=== PATIENT | male | born 1955 | race Caucasian/White ===

== ENCOUNTER 2016-05-29 12:27 | Emergency (ER) | payer OTHER ==
[~2016-05-29] VITALS: Ht 170.2 cm; Wt 70.0 kg
[~2016-05-29 12:27] MED LIST: DIFL500T PO; TRAM50 PO; Z.0.NO CURRENT MEDS
[2016-05-29 12:29] VITALS: BP 138/80; PULSE 124; RESP 20; TEMP 97.6; O2SAT 98
[2016-05-29 12:40] VITALS: O2SAT 97
[2016-05-29] MEDS ORDERED: FINA5TAB2 PO (12:43)
[2016-05-29] MEDS ORDERED: OMEGCAP PO (12:43)
[2016-05-29] MEDS ORDERED: TAMS0.4C4 PO (12:43)
[2016-05-29 12:44] VITALS: BP 146/80; PULSE 110; RESP 16; O2SAT 98
[2016-05-29] MEDS ORDERED: SODIUM CHLOR 0.9% 1000 ML INJ 1,000 ML IV ONE ×2 (13:00)
[2016-05-29 13:11] LABS: AUTOMATED NEUTROPHIL # 9.6 TH/MM3 (1.8-7.7); BASOPHIL % 0.3 % (0.0-2.0); EOSINOPHIL % 0.1 % (0.0-4.0); HEMATOCRIT 45.6 % (39.0-51.0); HEMO FLAGS DIFF FINAL; LYMPH % 16.3 % (9.0-44.0); MEAN CELL VOLUME 84.9 FL (80.0-100.0); MEAN CORPUSCULAR HEMOGLOBIN 29.4 PG (27.0-34.0); MEAN CORPUSCULAR HGB CONC 34.6 % (32.0-36.0); MONO % 5.1 % (0.0-8.0); NEUT % 78.2 % (16.0-70.0); PLATELET COUNT 210 TH/MM3 (150-450); RED BLOOD COUNT 5.37 MIL/MM3 (4.50-5.90); RED CELL DISTRIBUTION WIDTH 13.3 % (11.6-17.2); WHITE BLOOD COUNT 12.3 TH/MM3 (4.0-11.0)
[2016-05-29 13:25] LABS: APTT (PATIENT) 24.7 SEC (24.3-30.1); PROTHROMBIN TIME - PATIENT 11.6 SEC (9.8-11.6)
[2016-05-29 13:35] VITALS: BP 142/71; PULSE 99; RESP 16; O2SAT 96
[2016-05-29 13:35] LABS: ANION GAP 10 MEQ/L (5-15); AST (GOT) 16 U/L (15-37); BICARBONATE 25.9 MEQ/L (21.0-32.0); BLOOD UREA NITROGEN 20 MG/DL (7-18); CHLORIDE 105 MEQ/L (98-107); GLOMERULAR FILTRATION RATE 53 ML/MIN (>89); MAGNESIUM 2.2 MG/DL (1.5-2.5); SODIUM (NA) 141 MEQ/L (136-145)
--- NOTE | 2016-05-29 13:37 | RADRPT ---
EXAM DATE/TIME: 05/29/2016 12:55 [facility] COMPARISON: No previous studies available for comparison. INDICATIONS : Fever with shortness of breath. MEDICAL HISTORY : Carcinoma, prostatic. SURGICAL HISTORY : Appendectomy. Cholecystectomy. ENCOUNTER: Initial ACUITY: 1 day PAIN SCORE: 6/10 LOCATION: Bilateral chest FINDINGS: A single view of the chest demonstrates the lungs to be symmetrically aerated without evidence of mas s, infiltrate or effusion. The cardiomediastinal contours are unremarkable. Osseous structures are intact. CONCLUSION: No acute disease. Pierre Kim Jr., MD on May 29, 2016 at 13:35 Board Certified Radiologist. This report was verified electronically.
[2016-05-29 13:43] LABS: ALKALINE PHOSPHATASE 90 U/L (45-117); ALT (GPT) 26 U/L (12-78); CREATINE KINASE 104 U/L (39-308); TOTAL BILIRUBIN ADULT 0.4 MG/DL (0.2-1.0)
[2016-05-29 13:56] LABS: CKMB 0.8 NG/ML (0.5-3.6)
[2016-05-29 14:11] LABS: BLOOD, URINE TRACE (NEG); COMMENT (UR) CATH-CULT NOT IND; CULTURE IF INDICATED CATH CULTURE NOT IND; GLUCOSE,URINE NEG (NEG); KETONE, URINE 10 mg/dL (NEG); NITRITE,URINE NEG (NEG); PH, URINE 6.5 (5.0-8.5); URINE COLOR LIGHT-YELLOW (YELLW/STRAW)
--- NOTE | 2016-05-29 14:54 | PD ---
HPI Chief Complaint: Medical Clearance Time Seen by Provider: 12:48 Travel History International Travel<30 days: No Contact w/Intl Traveler<30days: No Traveled to known affect area: No History of Present Illness HPI Is a 60-year-old male presents with generalized symptoms of not feeling well, fevers yesterday. Patient is tachycardic tachypneic on arrival. States his been having some cough congestion symptoms as well as some right lower quadrant abdominal pain. Denies any testicle pain or penile pain. Patient states he went to an urgent care center and they sent him over here to be evaluated. Patient states the pain is cramping and intermittent. Waxing and waning. Denies any diarrhea or vomiting does endorse some mild nausea. PFSH Past Medical History Diminished Hearing: No Genitourinary: Yes (HX PROSTATE CALCIFICATIONS) Past Surgical History Appendectomy: Yes (73) Tonsillectomy: Yes Social History Alcohol Use: No Tobacco Use: No Substance Use: No Allergies-Medications (Allergen,Severity, Reaction): Coded Allergies: Codeine (Verified Allergy, Mild, 07/07/06) Reported Meds & Prescriptions Reported Meds & Active Scripts Active Reported Tamsulosin (Tamsulosin HCl) 0.4 Mg Cap 0.4 Mg PO HS [place]-3 Fish Oil/Vitamin (Fish Oil-Cholecalciferol) 1,000-1,000 Mg Cap 1 Cap PO DAILY Finasteride 5 Mg Tab 5 Mg PO QID Do not crush. Review of Systems Except as stated in HPI: all other systems reviewed are Neg Physical Exam Narrative GENERAL: Well-developed well-nourished, rigorous, appears older than stated age. SKIN: Warm and dry. HEAD: Atraumatic. Normocephalic. EYES: Pupils equal and round. No scleral icterus. No injection or drainage. ENT: No nasal bleeding or discharge. Mucous membranes pink and moist. NECK: Trachea midline. No JVD. CARDIOVASCULAR: Regular rate and rhythm. No murmur appreciated. RESPIRATORY: No accessory muscle use. Clear to auscultation. Breath sounds equal bilaterally. GASTROINTESTINAL: Abdomen soft, non-tender, nondistended. Hepatic and splenic margins not palpable. No tenderness at McBurney's point. MUSCULOSKELETAL: No obvious deformities. No clubbing. No cyanosis. No edema. NEUROLOGICAL: Awake and alert. No obvious cranial nerve deficits. Motor grossly within normal limits. Normal speech. PSYCHIATRIC: Appropriate mood and affect; insight and judgment normal. Data Data Last Documented VS Vital Signs Date Time Temp Pulse Resp B/P Pulse Ox O2 Delivery O2 Flow Rate FiO2 05/29/16 16:12 91 16 132/84 97 05/29/16 13:35 Room Air 05/29/16 12:29 97.6 Orders Electrocardiogram (05/29/16 12:43) Complete Blood Count With Diff (05/29/16 12:43) Comprehensive Metabolic Panel (05/29/16 12:43) Prothrombin Time / Inr (Pt) (05/29/16 12:43) Act Partial Throm Time (Ptt) (05/29/16 12:43) Lactic Acid Sepsis Protocol (05/29/16 12:43) Magnesium (Mg) (05/29/16 12:43) Phosphorus (Po4) (05/29/16 12:43) Lipase (05/29/16 12:43) Ckmb (Isoenzyme) Profile (05/29/16 12:43) Troponin I (05/29/16 12:43) Urinalysis - C+S If Indicated (05/29/16 12:43) Blood Culture (05/29/16 12:43) Chest, Single Ap (05/29/16 12:43) Blood Glucose (05/29/16 12:43) Ecg Monitoring (05/29/16 12:43) Iv Access Insert/Monitor (05/29/16 12:43) Oximetry (05/29/16 12:43) Oxygen Administration (05/29/16 12:43) Sodium Chlor 0.9% 1000 Ml Inj (Ns 1000 M (05/29/16 13:00) Sodium Chlor 0.9% 1000 Ml Inj (Ns 1000 M (05/29/16 13:00) CKMB (05/29/16 12:50) CKMB% (05/29/16 12:50) Ct Abd/Pel W Iv Contrast(Rout) (05/29/16 ) Cath For Specimen (05/29/16 14:02) Iohexol 350 Inj (Omnipaque 350 Inj) (05/29/16 14:56) Acetamin-Hydrocod 325-5 Mg ([place] 5-325 (05/29/16 15:45) Labs Laboratory Tests Test 05/29/16 05/29/16 05/29/16 12:50 12:55 13:58 White Blood Count 12.3 TH/MM3 Red Blood Count 5.37 MIL/MM3 Hemoglobin 15.8 GM/DL Hematocrit 45.6 % Mean Corpuscular Volume 84.9 FL Mean Corpuscular Hemoglobin 29.4 PG Mean Corpuscular Hemoglobin 34.6 % Concent Red Cell Distribution Width 13.3 % Platelet Count 210 TH/MM3 Mean Platelet Volume 8.1 FL Neutrophils (%) (Auto) 78.2 % Lymphocytes (%) (Auto) 16.3 % Monocytes (%) (Auto) 5.1 % Eosinophils (%) (Auto) 0.1 % Basophils (%) (Auto) 0.3 % Neutrophils # (Auto) 9.6 TH/MM3 Lymphocytes # (Auto) 2.0 TH/MM3 Monocytes # (Auto) 0.6 TH/MM3 Eosinophils # (Auto) 0.0 TH/MM3 Basophils # (Auto) 0.0 TH/MM3 CBC Comment DIFF FINAL Differential Comment Prothrombin Time 11.6 SEC Prothromb Time International 1.0 RATIO Ratio Activated Partial 24.7 SEC Thromboplast Time Sodium Level 141 MEQ/L Potassium Level 4.0 MEQ/L Chloride Level 105 MEQ/L Carbon Dioxide Level 25.9 MEQ/L Anion Gap 10 MEQ/L Blood Urea Nitrogen 20 MG/DL Creatinine 1.37 MG/DL Estimat Glomerular Filtration 53 ML/MIN Rate Random Glucose 121 MG/DL Calcium Level 9.6 MG/DL Phosphorus Level 2.0 MG/DL Magnesium Level 2.2 MG/DL Total Bilirubin 0.4 MG/DL Aspartate Amino Transf 16 U/L (AST/SGOT) Alanine Aminotransferase 26 U/L (ALT/SGPT) Alkaline Phosphatase 90 U/L Total Creatine Kinase 104 U/L Creatine Kinase MB 0.8 NG/ML Troponin I LESS THAN 0.02 NG/ML Total Protein 7.3 GM/DL Albumin 4.1 GM/DL Lipase 163 U/L Lactic Acid Level 1.9 mmol/L Urine Color LIGHT-YELLOW Urine Turbidity CLEAR Urine pH 6.5 Urine Specific [place] 1.010 Urine Protein NEG mg/dL Urine Glucose (UA) NEG mg/dL Urine Ketones 10 mg/dL Urine Occult Blood TRACE Urine Nitrite NEG Urine Bilirubin NEG Urine Urobilinogen LESS THAN 2.0 MG/DL Urine Leukocyte Esterase NEG Urine RBC 1 /hpf Microscopic Urinalysis Comment CATH-CULT NOT IND MDM Medical Decision Making Medical Screen Exam Complete: Yes Emergency Medical Condition: Yes Interpretation(s) EKG shows sinus tachycardia normal axis and normal R-wave progression. No concerning ST changes. Intervals other than rate are within normal limits. This a normal EKG except for rate. Differential Diagnosis Appendicitis, gastritis, gastric enteritis, chronic pain, sepsis unlikely. Narrative Course Patient roomed in emergency Department, white blood cell count minimally elevated at 12.3, given his history of pain in the abdomen will pursue CAT scan which shows no evidence for appendicitis. Chemistry shows minimal elevation in creatinine to 1.37 a lactic acid 1.9 which is negative. Last 24 hours Impressions Chest X-Ray 05/29/16 1243 Signed Impressions: Service Date/Time: Sunday, May 29, 2016 12:55 - CONCLUSION: No acute disease. Pierre Kim Jr., MD Abdomen/Pelvis CT 05/29/16 0000 Signed Impressions: Service Date/Time: Sunday, May 29, 2016 14:54 - CONCLUSION: 1. Tiny 1 mm stone in the left kidney. 2. There are no stones identified on the right. I do not see any perinephric stranding to suggest an obstruction. Kyrie Manuel MD FACR On further history the patient states she's been having groin pain on and off for years. His Rigors have ceased since being in the emergency department. He was giving hydrocodone total of 10/650 in the emergency department, 2 L normal saline bolus. On reassess he appears well in no apparent distress. His exam is benign. Discussed with him his chronic nature of the pain suggests he is stable for discharge need follow-up with primary care physician. Definitive cause of his pain has not been identified. His groin is reexamined and he isolates the pain to the Garcialis and adductor muscles. No scrotal abnormalities. Diagnosis Primary Impression: Fatigue Qualified Code: R53.83 - Fatigue, unspecified type Additional Impression: Groin pain Disposition: DISCHARGE HOME Condition: Stable Capo Wood MD May 29, 2016 14:54
[2016-05-29] MEDS ORDERED: IOHEXOL 350 MG/ML 10 ML VIAL (for RAD DIAG) IV ONE (14:56)
--- NOTE | 2016-05-29 15:16 | RADRPT ---
EXAM DATE/TIME: 05/29/2016 14:54 [facility] COMPARISON: No previous studies available for comparison. INDICATIONS : Nausea and right groin pain. IV CONTRAST: 91 cc Omnipaque 350 (iohexol) IV ORAL CONTRAST: No oral contrast ingested. RADIATION DOSE: 8.50 CTDIvol (mGy) MEDICAL HISTORY : Prostate calcifications. SURGICAL HISTORY : Appendectomy. ENCOUNTER: Initial ACUITY: 1 day PAIN SCALE: 5/10 LOCATION: Right abdomen/pelvis TECHNIQUE: Volumetric scanning of the abdomen and pelvis was performed. Using automated exposure control and adjustment of the mA and/or kV according to patient size, radiation dose was kept as low as reasonably achievable to obtain optimal diagnostic quality images. FINDINGS: The lung bases are clear. The liver, spleen, pancreas and adrenals are unremarkable. The right kidney is unremarkable. There is a tiny 1 mm stone in the left kidney. There is no perine phric stranding evident. I do not see any calcification along the expected course of the right ureter. There is an apparent phlebolith in the pelvis. I believe this is beyond the confines of the ureter. Correlation is suggested. There is no perinephric stranding to suggest this is an obstructing stone. Pelvic contents are otherwise unremarkable. CONCLUSION: 1. Tiny 1 mm stone in the left kidney. 2. There are no stones identified on the right. I do not see any perinephric stranding to suggest an obstruction. Kyrie Manuel MD FACR on May 29, 2016 at 15:09 Board Certified Radiologist. This report was verified electronically.
[2016-05-29] MEDS ORDERED: ACETAMINOPHEN/HYDROcodone 325 MG/5 MG TAB PO ONE (15:45)
[2016-05-29 16:12] VITALS: BP 132/84
--- NOTE | 2016-05-29 18:00 | EKG ---
Date Performed: 05/29/2016 Time Performed: 11:07:12 PTAGE: 60 years EKG: BASELINE ARTIFACT PRESENT. SINUS TACHYCARDIA ABNORMAL RHYTHM ECG NO PREVIOUS TRACING DOCTOR: Pollo Worthington Interpretating Date/Time 05/29/2016 17:58:38
== END 2016-05-29 16:32 | disposition home or self-care (01) ==
LOC: NEPA 12:27
DX: R53.83 Other fatigue (principal); R10.30 Lower abdominal pain, unspecified; R10.31 Right lower quadrant pain; R94.31 Abnormal electrocardiogram [ECG] [EKG]; R00.0 Tachycardia, unspecified; R06.82 Tachypnea, not elsewhere classified
CPT/HCPCS: 71010; 74177; 80053; 81001; 82550; 82552; 83605; 83690; 83735; 84100; 84484; 85025; 85610; 85730; 87040; 93005; 96360; 99285; J7030; Q9967